=== PATIENT | female | born 1990 | race African-American/Black ===

== ENCOUNTER 2018-05-25 11:41 | Inpatient (IN) | payer BC ==
[2018-05-25 13:02] LABS: ADD UMIC YES; UR ASCORBIC ACID NEGATIVE (NEGATIVE); UR BACTERIA FEW /HPF (NONE SEEN); UR BILIRUBIN (Dip) NEGATIVE (NEGATIVE); UR BLOOD (Dip) NEGATIVE (NEGATIVE); UR CLARITY CLOUDY (CLEAR); UR COLOR YELLOW (YELLOW); UR GLUCOSE (Dip) NEGATIVE (NEGATIVE); UR KETONES (Dip) NEGATIVE (NEGATIVE); UR LEUKOCYTE ESTERASE (Dip) 3+ Leu/ul (NEGATIVE); UR NITRITE (Dip) NEGATIVE (NEGATIVE); UR RBC 23 /HPF (0-5); UR SQUAMOUS EPITHELIAL CELL FEW /HPF (FEW); UR TOTAL PROTEIN (Dip) NEGATIVE (NEGATIVE); UR UROBILINOGEN (Dip) 1+ mg/dL (NEGATIVE); UR WBC 13 /HPF (0-5)
[2018-05-25] MEDS: LACTATED RINGER'S 1,000 ML IV* ×2 (13:05→22:21)
[2018-05-25 13:15] LABS: ADD MAN DIFF? NO
[2018-05-25 13:16] LABS: ABNORMAL IP MESSAGE 1; BASOPHILS % 0.2 % (0.0-2.0); EOSINOPHILS # 0.1 10^3/ul (0.0-0.5); EOSINOPHILS % 1.3 % (0.0-7.0); HEMATOCRIT 23.3 % (37.0-47.0); LYMPHOCYTES # 1.3 10^3/ul (0.8-2.9); LYMPHOCYTES % 16.2 % (15.0-51.0); MEAN CORPUSCULAR HEMOGLOBIN 18.2 pg (29.0-33.0); MEAN CORPUSCULAR HGB CONC 28.8 g/dl (32.0-37.0); MEAN CORPUSCULAR VOLUME 63.3 fl (82.0-101.0); MONOCYTE # 0.8 10^3/ul (0.3-0.9); MONOCYTES % 9.3 % (0.0-11.0); NUCLEATED RED BLOOD CELLS # 0.1 10^3/ul (0.0-0.0); NUCLEATED RED BLOOD CELLS% 0.7 /100WBC (0.0-0.0); PLATELET COUNT 171 10^3/UL (140-415); RED BLOOD COUNT 3.68 10^6/ul (4.20-5.40); RED CELL DISTRIBUTION WIDTH 20.5 % (11.5-14.5)
[2018-05-25 13:16] LABS: WHITE BLOOD COUNT 8.3 10^3/ul (4.8-10.8)
[2018-05-25 13:23] LABS: POSITIVE DIFF @See below
[2018-05-25 13:25] LABS: HEMOGLOBIN 6.7 g/dl (12.0-16.0)
[2018-05-25 13:40] LABS: ALANINE AMINOTRANSFERASE 13 IU/L (13-69); ALBUMIN 3.1 g/dl (3.3-4.9); ALKALINE PHOSPHATASE 105 IU/L (42-121); ANION GAP 8 (5-13); ASPARTATE AMINO TRANSFERASE 20 IU/L (15-46); BILIRUBIN,INDIRECT 0.2 mg/dl (0-1.1); BILIRUBIN,TOTAL 0.2 mg/dl (0.2-1.3); BLOOD UREA NITROGEN 3 mg/dl (7-20); CALCIUM 8.1 mg/dl (8.4-10.2); CARBON DIOXIDE 21 mmol/L (21-31); CHLORIDE 108 mmol/L (97-110); CREATININE 0.66 mg/dl (0.44-1.00); Estimated GFR > 60 mL/min (>60); GLUCOSE 93 mg/dl (70-220); SODIUM 137 mmol/L (135-144); TOTAL PROTEIN 6.2 g/dl (6.1-8.1)
[2018-05-25] MEDS ORDERED: LACTATED RINGER'S 1,000 ML IV (16:09)
[2018-05-25] MEDS ORDERED: ONDANSETRON 4 MG INJ IV (16:30)
[2018-05-25] MEDS ORDERED: ACETAMINOPHEN 325 MG TAB PO (16:30)
[2018-05-25 17:08] LABS: IMMEDIATE SPIN CROSSMATCH 1
[2018-05-25] MEDS: SOD CHLORIDE 0.9% 1,000 ML IV (18:09)
[2018-05-25 20:57] LABS: IMMEDIATE SPIN CROSSMATCH 1 2
[2018-05-25] MEDS: FERROUS SULFATE (EC) 325 MG TAB PO (22:20)
[2018-05-26] MEDS: LACTATED RINGER'S 1,000 ML IV* (07:43)
[2018-05-26 07:50] LABS: ADD MAN DIFF? NO
[2018-05-26 07:56] LABS: WHITE BLOOD COUNT 8.7 10^3/ul (4.8-10.8)
[2018-05-26 07:56] LABS: ABNORMAL IP MESSAGE 1; BASOPHILS % 0.2 % (0.0-2.0); EOSINOPHILS # 0.1 10^3/ul (0.0-0.5); EOSINOPHILS % 1.4 % (0.0-7.0); HEMATOCRIT 24.7 % (37.0-47.0); HEMOGLOBIN 7.4 g/dl (12.0-16.0); LYMPHOCYTES # 1.5 10^3/ul (0.8-2.9); LYMPHOCYTES % 17.3 % (15.0-51.0); MEAN CORPUSCULAR HEMOGLOBIN 19.6 pg (29.0-33.0); MEAN CORPUSCULAR VOLUME 65.5 fl (82.0-101.0); MONOCYTE # 0.8 10^3/ul (0.3-0.9); MONOCYTES % 8.7 % (0.0-11.0); NEUTROPHIL # 6.2 10^3/ul (1.6-7.5); NEUTROPHILS % 71.4 % (39.0-77.0); NUCLEATED RED BLOOD CELLS # 0.1 10^3/ul (0.0-0.0); NUCLEATED RED BLOOD CELLS% 0.8 /100WBC (0.0-0.0); PLATELET COUNT 143 10^3/UL (140-415); RED BLOOD COUNT 3.77 10^6/ul (4.20-5.40); RED CELL DISTRIBUTION WIDTH 21.8 % (11.5-14.5)
[2018-05-26 08:28] LABS: POSITIVE DIFF @See below
[2018-05-26] MEDS: FERROUS SULFATE (EC) 325 MG TAB PO (08:40)
== END 2018-05-26 12:25 | disposition home or self-care (01) | DRG 833 ==
LOC: OBT 11:41 → L-D 11:41 → PP1 05-26 10:54 → OBT 14:54 → L-D 14:50
PROC: 30233N1 Transfusion of Nonautologous Red Blood Cells into Peripheral Vein, Percutaneous Approach (ICD-10-PCS; principal; 2018-05-25)
PROC: 30233K1 Transfusion of Nonautologous Frozen Plasma into Peripheral Vein, Percutaneous Approach (ICD-10-PCS; 2018-05-25)
DX: O99.013 Anemia complicating pregnancy, third trimester (principal); D64.9 Anemia, unspecified; O62.9 Abnormality of forces of labor, unspecified; Z3A.35 35 weeks gestation of pregnancy
CPT/HCPCS: 36415; 36430; 76815; 76818; 80053; 81001; 85025; 86850; 86900; 86901; 86920; 87086; 96360; 96361

== ENCOUNTER 2018-06-08 11:59 | Inpatient (IN) | payer BC ==
[~2018-06-08 11:59] MED LIST: OXYTOCIN 30 UNITS/LR 500 ML BAG IV
[2018-06-08] MEDS ORDERED: MAGNESIUM SULFATE 20 GM/500 ML 500 ML IV (12:44)
[2018-06-08] MEDS ORDERED: MAGNESIUM SULFATE 4 GM/100 ML 100 ML (12:44)
[2018-06-08] MEDS ORDERED: CARBOPROST 250 MCG INJ IM ×2 (13:00→21:00)
[2018-06-08] MEDS ORDERED: MISOPROSTOL 200 MCG TAB PR ×2 (13:00→21:00)
[2018-06-08] MEDS ORDERED: OXYTOCIN 30 UNITS/LR 500 ML IV ×2 (13:00→21:00)
[2018-06-08] MEDS ORDERED: METHYLERGONOVINE 0.2 MG INJ IM ×2 (13:00→21:00)
[2018-06-08] MEDS: LACTATED RINGER'S 1,000 ML IV ×3 (13:23→21:00)
[2018-06-08 13:24] LABS: ADD MAN DIFF? NO
[2018-06-08] MEDS: MAGNESIUM SULFATE 4 GM/100 ML 100 ML IV (13:24)
[2018-06-08 13:27] LABS: ABNORMAL IP MESSAGE 1; BASOPHILS % 0.4 % (0.0-2.0); EOSINOPHILS # 0.1 10^3/ul (0.0-0.5); EOSINOPHILS % 1.1 % (0.0-7.0); HEMATOCRIT 26.7 % (37.0-47.0); HEMOGLOBIN 7.8 g/dl (12.0-16.0); LYMPHOCYTES # 1.5 10^3/ul (0.8-2.9); LYMPHOCYTES % 18.4 % (15.0-51.0); MEAN CORPUSCULAR HEMOGLOBIN 19.5 pg (29.0-33.0); MEAN CORPUSCULAR HGB CONC 29.2 g/dl (32.0-37.0); MEAN CORPUSCULAR VOLUME 66.6 fl (82.0-101.0); MONOCYTE # 0.7 10^3/ul (0.3-0.9); MONOCYTES % 9.3 % (0.0-11.0); NEUTROPHIL # 5.6 10^3/ul (1.6-7.5); NEUTROPHILS % 70.4 % (39.0-77.0); NUCLEATED RED BLOOD CELLS% 0.3 /100WBC (0.0-0.0); PLATELET COUNT 152 10^3/UL (140-415); RED BLOOD COUNT 4.01 10^6/ul (4.20-5.40)
[2018-06-08 13:27] LABS: WHITE BLOOD COUNT 7.9 10^3/ul (4.8-10.8)
[2018-06-08 13:31] LABS: POSITIVE DIFF @See below
[2018-06-08 13:32] LABS: INR 0.99; PROTIME 13.2 Sec (11.9-14.9)
[2018-06-08 13:33] LABS: PARTIAL THROMBOPLASTIN TIME 26.3 Sec (23.0-35.0)
[2018-06-08] MEDS: MAGNESIUM SULFATE 20 GM/500 ML 500 ML IV (13:43)
[2018-06-08 13:50] LABS: ALANINE AMINOTRANSFERASE 9 IU/L (13-69); ALBUMIN 3.2 g/dl (3.3-4.9); ALBUMIN/GLOBULIN RATIO 1.14; ALKALINE PHOSPHATASE 96 IU/L (42-121); ANION GAP 8 (5-13); ASPARTATE AMINO TRANSFERASE 21 IU/L (15-46); BILIRUBIN,INDIRECT 0.3 mg/dl (0-1.1); BILIRUBIN,TOTAL 0.3 mg/dl (0.2-1.3); BLOOD UREA NITROGEN 3 mg/dl (7-20); CALCIUM 8.2 mg/dl (8.4-10.2); CARBON DIOXIDE 23 mmol/L (21-31); CHLORIDE 107 mmol/L (97-110); CREATININE 0.64 mg/dl (0.44-1.00); Estimated GFR > 60 mL/min (>60); GLUCOSE 114 mg/dl (70-220); POTASSIUM 3.8 mmol/L (3.5-5.1); SODIUM 138 mmol/L (135-144); URIC ACID 4.4 mg/dl (3.1-7.9)
[2018-06-08 13:52] LABS: MAGNESIUM 1.5 mg/dl (1.7-2.5)
[2018-06-08] MEDS ORDERED: DEXAMETHASONE 4 MG/ML 1 ML INJ ×2 (16:07)
[2018-06-08] MEDS ORDERED: morphine SULFATE/PF (10 MG/10 ML) INJ (16:07)
[2018-06-08] MEDS ORDERED: PHENYLephrine (100 MCG/ML) 5ML SYG (16:07)
[2018-06-08] MEDS ORDERED: FENTAnyl 50 MCG/ML VIAL (16:07)
[2018-06-08] MEDS ORDERED: ONDANSETRON 4 MG INJ (16:07)
[2018-06-08 16:29] LABS: RAPID PLASMA REAGIN NONREACTIVE (NR)
[2018-06-08] MEDS ORDERED: MIDAZOLAM 1 MG/ML 2 ML INJ (17:20)
[2018-06-08] MEDS ORDERED: ZOLPIDEM 5 MG TAB PO (18:00)
[2018-06-08] MEDS ORDERED: DIPHENHYDRAMINE 50 MG INJ IV (18:00)
[2018-06-08] MEDS ORDERED: ONDANSETRON 4 MG INJ IV (18:00)
[2018-06-08] MEDS ORDERED: NALOXONE (0.4 MG/ML) INJ IV (18:00)
[2018-06-08] MEDS ORDERED: HYDROmorphONE 0.5 MG/0.5 ML SYG IV ×2 (18:00)
[2018-06-08] MEDS: CEFAZOLIN 3 GM in DEXTROSE 5% 100 ML IV (18:55)
[2018-06-08] MEDS: KETOROLAC 30 MG INJ IV (19:02)
[2018-06-08] MEDS: OXYTOCIN 30 UNITS/LR 500 ML IV ×2 (19:04→20:48)
[2018-06-08 19:52] LABS: MAGNESIUM 3.5 mg/dl (1.7-2.5)
[2018-06-08] MEDS ORDERED: METHYLERGONOVINE 0.2 MG TAB PO (21:00)
[2018-06-08] MEDS ORDERED: LANOLIN 7 GM TUBE TOP (21:00)
[2018-06-08] MEDS: SENNA/DOCUSATE NA (8.6MG/50MG) TAB PO (21:00)
[2018-06-09] MEDS: OXYTOCIN 30 UNITS/LR 500 ML IV ×2 (00:30→06:31)
[2018-06-09] MEDS: MAGNESIUM SULFATE 20 GM/500 ML 500 ML IV ×3 (01:32→19:00)
[2018-06-09 01:37] LABS: MAGNESIUM 4.5 mg/dl (1.7-2.5)
[2018-06-09] MEDS: LACTATED RINGER'S 1,000 ML IV ×3 (05:00→21:00)
[2018-06-09] MEDS: SENNA/DOCUSATE NA (8.6MG/50MG) TAB PO ×2 (08:54→21:01)
[2018-06-09 10:08] LABS: ADD MAN DIFF? NO
[2018-06-09 10:12] LABS: ABNORMAL IP MESSAGE 1; BASOPHILS % 0.1 % (0.0-2.0); HEMATOCRIT 24.6 % (37.0-47.0); HEMOGLOBIN 7.2 g/dl (12.0-16.0); LYMPHOCYTES # 0.8 10^3/ul (0.8-2.9); LYMPHOCYTES % 6.2 % (15.0-51.0); MEAN CORPUSCULAR HEMOGLOBIN 19.4 pg (29.0-33.0); MEAN CORPUSCULAR HGB CONC 29.3 g/dl (32.0-37.0); MEAN CORPUSCULAR VOLUME 66.1 fl (82.0-101.0); MONOCYTE # 1.1 10^3/ul (0.3-0.9); MONOCYTES % 8.2 % (0.0-11.0); NEUTROPHIL # 11.4 10^3/ul (1.6-7.5); NEUTROPHILS % 84.7 % (39.0-77.0); PLATELET COUNT 145 10^3/UL (140-415); RED BLOOD COUNT 3.72 10^6/ul (4.20-5.40); RED CELL DISTRIBUTION WIDTH 22.6 % (11.5-14.5)
[2018-06-09 10:12] LABS: WHITE BLOOD COUNT 13.5 10^3/ul (4.8-10.8)
[2018-06-09 10:13] LABS: POSITIVE DIFF @See below
[2018-06-09 10:29] LABS: MAGNESIUM 4.7 mg/dl (1.7-2.5)
[2018-06-09 10:31] LABS: ANION GAP 7 (5-13); BLOOD UREA NITROGEN 4 mg/dl (7-20); CALCIUM 7.4 mg/dl (8.4-10.2); CARBON DIOXIDE 22 mmol/L (21-31); CHLORIDE 104 mmol/L (97-110); CREATININE 0.59 mg/dl (0.44-1.00); Estimated GFR > 60 mL/min (>60); GLUCOSE 80 mg/dl (70-220); POTASSIUM 4.8 mmol/L (3.5-5.1); SODIUM 133 mmol/L (135-144)
[2018-06-09] MEDS: KETOROLAC 30 MG INJ IV (10:50)
[2018-06-09 16:07] LABS: MAGNESIUM 5.1 mg/dl (1.7-2.5)
[2018-06-09] MEDS: HYDROCODONE/APAP (5/325) TAB PO (21:02)
[2018-06-10] MEDS: LACTATED RINGER'S 1,000 ML IV (05:00)
[2018-06-10] MEDS: MAGNESIUM SULFATE 20 GM/500 ML 500 ML IV (05:00)
[2018-06-10] MEDS: HYDROCODONE/APAP (5/325) TAB PO ×5 (07:49→20:44)
[2018-06-10 08:06] LABS: ADD MAN DIFF? NO
[2018-06-10 08:12] LABS: WHITE BLOOD COUNT 12.3 10^3/ul (4.8-10.8)
[2018-06-10 08:12] LABS: ABNORMAL IP MESSAGE 1; BASOPHILS % 0.3 % (0.0-2.0); EOSINOPHILS # 0.1 10^3/ul (0.0-0.5); EOSINOPHILS % 0.6 % (0.0-7.0); HEMATOCRIT 23.4 % (37.0-47.0); LYMPHOCYTES # 1.2 10^3/ul (0.8-2.9); LYMPHOCYTES % 9.6 % (15.0-51.0); MEAN CORPUSCULAR HEMOGLOBIN 19.5 pg (29.0-33.0); MEAN CORPUSCULAR HGB CONC 29.5 g/dl (32.0-37.0); MEAN CORPUSCULAR VOLUME 66.3 fl (82.0-101.0); MONOCYTES % 8.1 % (0.0-11.0); NEUTROPHIL # 9.9 10^3/ul (1.6-7.5); NEUTROPHILS % 80.7 % (39.0-77.0); NUCLEATED RED BLOOD CELLS% 0.2 /100WBC (0.0-0.0); PLATELET COUNT 166 10^3/UL (140-415); RED BLOOD COUNT 3.53 10^6/ul (4.20-5.40); RED CELL DISTRIBUTION WIDTH 22.8 % (11.5-14.5)
[2018-06-10 08:14] LABS: HEMOGLOBIN 6.9 g/dl (12.0-16.0)
[2018-06-10 08:15] LABS: PATH REVIEW? YES; POSITIVE DIFF @See below
[2018-06-10 08:29] LABS: ALANINE AMINOTRANSFERASE 18 IU/L (13-69); ALBUMIN 2.5 g/dl (3.3-4.9); ALBUMIN/GLOBULIN RATIO 0.83; ALKALINE PHOSPHATASE 83 IU/L (42-121); ANION GAP 8 (5-13); ASPARTATE AMINO TRANSFERASE 30 IU/L (15-46); BILIRUBIN,INDIRECT 0.3 mg/dl (0-1.1); BILIRUBIN,TOTAL 0.3 mg/dl (0.2-1.3); BLOOD UREA NITROGEN 8 mg/dl (7-20); CALCIUM 7.8 mg/dl (8.4-10.2); CARBON DIOXIDE 26 mmol/L (21-31); CHLORIDE 107 mmol/L (97-110); CREATININE 0.77 mg/dl (0.44-1.00); Estimated GFR > 60 mL/min (>60); GLUCOSE 88 mg/dl (70-220); POTASSIUM 4.1 mmol/L (3.5-5.1); SODIUM 141 mmol/L (135-144); TOTAL PROTEIN 5.5 g/dl (6.1-8.1)
[2018-06-10] MEDS: BISACODYL 10 MG SUPP PR (09:00)
[2018-06-10] MEDS: MAGNESIUM HYDROXIDE 30ML CUP PO ×2 (09:12→12:42)
[2018-06-10] MEDS: SENNA/DOCUSATE NA (8.6MG/50MG) TAB PO ×2 (09:12→20:31)
[2018-06-10 09:39] LABS: ANISOCYTOSIS 3+ (0-0); BAND NEUTROPHILS #M 0.1 10^3/ul (0.0-0.6); BAND NEUTROPHILS % (M) 1 % (0-4); BASOPHIL #M 0.3 10^3/ul (0.0-0.0); BASOPHILS % (M) 3 % (0-2); LYMPHOCYTES #M 1.5 10^3/ul (0.8-2.9); LYMPHOCYTES % (M) 13 % (15-51); MICROCYTOSIS 3+ (0-0); MONOCYTE #M 0.1 10^3/ul (0.3-0.9); MONOCYTES % (M) 1 % (0-11); PLATELET ESTIMATE NORMAL; POIKILOCYTOSIS 1+ (0-0); POLYCHROMASIA 1+ (0-0); SEG NEUT #M 10.1 10^3/ul (1.6-7.5); SEGMENTED NEUTROPHILS (M) % 82 % (39-77); SMUDGE%M 50 % (0-0)
[2018-06-10] MEDS: FERROUS SULFATE (EC) 325 MG TAB PO ×2 (12:43→20:31)
[2018-06-11] MEDS: HYDROCODONE/APAP (5/325) TAB PO ×3 (00:24→13:11)
[2018-06-11] MEDS: SENNA/DOCUSATE NA (8.6MG/50MG) TAB PO (08:11)
[2018-06-11] MEDS: FERROUS SULFATE (EC) 325 MG TAB PO ×2 (08:11→13:10)
[2018-06-11] MEDS: MEASLES,MUMPS,RUBELLA VACCINE INJ SC* (09:00)
[2018-06-11] MEDS: DIPHTH/TET/ACEL PERTUSS (ADULT) 0.5 ML VIAL IM* (09:00)
[2018-06-11 09:44] LABS: ADD MAN DIFF? NO
[2018-06-11 09:49] LABS: ABNORMAL IP MESSAGE 1; BASOPHIL # 0.1 10^3/ul (0.0-0.1); BASOPHILS % 0.4 % (0.0-2.0); EOSINOPHILS # 0.3 10^3/ul (0.0-0.5); EOSINOPHILS % 2.7 % (0.0-7.0); HEMOGLOBIN 7.3 g/dl (12.0-16.0); LYMPHOCYTES # 1.6 10^3/ul (0.8-2.9); LYMPHOCYTES % 13.5 % (15.0-51.0); MEAN CORPUSCULAR HEMOGLOBIN 19.7 pg (29.0-33.0); MEAN CORPUSCULAR HGB CONC 29.2 g/dl (32.0-37.0); MEAN CORPUSCULAR VOLUME 67.6 fl (82.0-101.0); MONOCYTES % 8.8 % (0.0-11.0); NEUTROPHIL # 8.6 10^3/ul (1.6-7.5); NEUTROPHILS % 73.7 % (39.0-77.0); NUCLEATED RED BLOOD CELLS% 0.3 /100WBC (0.0-0.0); PLATELET COUNT 147 10^3/UL (140-415); RED CELL DISTRIBUTION WIDTH 22.7 % (11.5-14.5)
[2018-06-11 09:49] LABS: WHITE BLOOD COUNT 11.6 10^3/ul (4.8-10.8)
[2018-06-11 09:50] LABS: POSITIVE DIFF @See below
[2018-06-11] MEDS: IBUPROFEN 800 MG TAB PO (13:11)
== END 2018-06-11 14:20 | disposition home or self-care (01) | DRG 788 ==
LOC: OBT 11:59 → L-D 11:59 → OBT 13:11 → L-D 12:36 → PP1 20:23
PROC: 10D00Z1 Extraction of Products of Conception, Low, Open Approach (ICD-10-PCS; principal; 2018-06-08 17:00)
DX: O13.4 Gestational [pregnancy-induced] hypertension without significant proteinuria, complicating childbirth (principal); O69.81X0 Labor and delivery complicated by cord around neck, without compression, not applicable or unspecified; O99.214 Obesity complicating childbirth; E66.01 Morbid (severe) obesity due to excess calories; O99.02 Anemia complicating childbirth; D50.9 Iron deficiency anemia, unspecified; O34.219 Maternal care for unspecified type scar from previous cesarean delivery; Z3A.37 37 weeks gestation of pregnancy; Z37.0 Single live birth
CPT/HCPCS: 80048; 80053; 83735; 84560; 85025; 85610; 85730; 86592; 86850; 86900; 86901; 88307; 90715; 99464